=== PATIENT | female | born 1940 | race African-American/Black ===

== ENCOUNTER 2018-12-05 15:40 | Inpatient (IN) | payer MEDICARE, MEDICAID ==
[~2018-12-05] VITALS: Ht 170.2 cm; Wt 48.6 kg
[~2018-12-05 15:40] MED LIST: AZOPT EACHEYE; BIMA2.5D4 EACHEYE; BRIM5DRO6 OP; CITA10TA9 PO; ENAL20TA PO; GLIP5TAB12 PO; ISOS30TA6 PO; LISI10TA5 PO; METO25TA6 PO; PREG50CA PO; TIMO15DR12 EACHEYE; TRAZ-212 PO
[2018-12-05 16:25] VITALS: BP 195/97
[2018-12-05 16:45] VITALS: BP 211/173
[2018-12-05] MEDS: CLONIDINE 0.1MG TABLET PO SCH (17:12)
[2018-12-05] MEDS ORDERED: DEXTROSE 50% WATER 50ML SYRINGE IV PRN (17:15)
[2018-12-05 17:25] VITALS: BP 194/100
[2018-12-05] MEDS ORDERED: MAGNESIUM/ALUMINUM HYDROXIDE/SIMETHICONE 30ML UDC PO PRN (17:45)
[2018-12-05] MEDS ORDERED: LOPHC2 PO (17:45)
[2018-12-05] MEDS ORDERED: CEFTRIAXONE 1 G PREMIX 50 ML IV SCH (17:45)
[2018-12-05] MEDS ORDERED: CLONIDINE 0.1MG TABLET PO PRN (17:45)
[2018-12-05] MEDS ORDERED: LISI10TA5 PO (17:50)
[2018-12-05] MEDS ORDERED: OMEP20TA2 PO (17:50)
[2018-12-05] MEDS ORDERED: TRAZ-212 PO (17:50)
[2018-12-05] MEDS ORDERED: PREG50CA PO (17:50)
[2018-12-05] MEDS ORDERED: ISOS10TA2 PO (17:50)
[2018-12-05] MEDS: BLOOD SUGAR DIAGNOSTIC STRIP TEST SCH ×2 (18:08→21:01)
[2018-12-05] MEDS: METOPROLOL TARTRATE 25MG TABLET PO SCH (18:48)
[2018-12-05] MEDS: SODIUM CHLORIDE 0.9% 1,000 ML IV SCH (18:48)
[2018-12-05] MEDS ORDERED: INFLUENZA VIRUS VACCINE(AFLURIA) 0.5ML SYR IM ONE (19:00)
[2018-12-05 20:00] VITALS: BP 168/77
[2018-12-05 21:30] LABS: HEMATOCRIT 39.9 % (36.0-48.0); HEMOGLOBIN 13.2 g/dL (12.0-16.0); MEAN CORPUSCULAR HEMOGLOBIN 27.8 pg (28.0-32.0); MEAN CORPUSCULAR VOLUME 83.7 fL (81.0-99.0); PLATELET 167 x1000/uL (130-400); RED BLOOD CELL COUNT 4.77 mill/uL (4.2-5.4); RED CELL DISTRIBUTION WIDTH 13.6 % (11.6-14.6)
[2018-12-05 21:48] LABS: CHLORIDE 104 mEq/L (98-107)
[2018-12-06] VITALS (7 sets, daily range): BP systolic 95–197; BP diastolic 44–98
[2018-12-06] MEDS: CEFTRIAXONE 1 G PREMIX 50 ML IV SCH ×2 (00:47→18:07)
[2018-12-06] MEDS: POTASSIUM CHLORIDE 20MEQ TABLET SR PO SCH ×2 (00:48→20:24)
[2018-12-06] MEDS ORDERED: VANCOMYCIN 750 MG PREMIX 150 ML IV NR (01:00)
[2018-12-06] MEDS: BLOOD SUGAR DIAGNOSTIC STRIP TEST SCH ×4 (06:48→20:24)
[2018-12-06 07:34] LABS: BASOPHILS % 0.9 % (0.0-2.0); EOSINOPHILS % 0.4 % (0.0-5.0); HEMATOCRIT. 45.1 % (36.0-48.0); HEMOGLOBIN. 15.4 g/dL (12.0-16.0); LYMPHOCYTES % 38.2 % (20.0-50.0); MEAN CORPUSCULAR HEMOGLOBIN 27.8 pg (28.0-32.0); MEAN CORPUSCULAR VOLUME 81.7 fL (81.0-99.0); MEAN PLATELET VOLUME 7.3 fl (7.4-10.4); MONOCYTES % 7.2 % (2.0-8.0); NEUTROPHILS % 53.3 % (40.0-76.0); PLATELET 193 x1000/uL (130-400); RED BLOOD CELL COUNT 5.53 mill/uL (4.2-5.4); RED CELL DISTRIBUTION WIDTH 13.7 % (11.6-14.6)
[2018-12-06] MEDS: CLONIDINE 0.1MG TABLET PO SCH ×4 (09:00→17:00)
[2018-12-06 09:08] LABS: CLARITY URINE CLEAR (CLEAR); COLOR URINE YELLOW (YELLOW); KETONES URINE NEGATIVE (NEGATIVE); LEUKOCYTE ESTERASE URINE NEGATIVE (NEGATIVE); NITRITE URINE NEGATIVE (NEGATIVE); OCCULT BLOOD URINE NEGATIVE (NEGATIVE); PH URINE 7.5 (4.5-8.0); PROTEIN URINE NEGATIVE (NEGATIVE); SPECIFIC GRAVITY URINE 1.007 (1.005-1.030); UROBILINOGEN URINE 0.2 E.U./dL (0.2-1.0)
[2018-12-06] MEDS ORDERED: IOHEXOL-300 100 ML BOTTLE ONE (09:37)
[2018-12-06] MEDS: ENOXAPARIN 40MG/0.4ML SYR SUBCUT SCH (10:04)
[2018-12-06] MEDS: METOPROLOL TARTRATE 25MG TABLET PO SCH (10:04)
[2018-12-06] MEDS ORDERED: VANCOMYCIN 750 MG PREMIX 150 ML IV SCH (14:00)
[2018-12-06] MEDS: SODIUM CHLORIDE 0.9% 1,000 ML IV SCH (16:32)
[2018-12-06] MEDS: INSULIN LISPRO 100 UNITS/ML SUBCUT SCH ×2 (21:00→21:42)
[2018-12-07] VITALS: BP 134/60
[2018-12-07] MEDS: SODIUM CHLORIDE 0.9% 1,000 ML IV SCH ×3 (01:19→21:00)
[2018-12-07 04:00] VITALS: BP 150/78
[2018-12-07] MEDS: INSULIN LISPRO 100 UNITS/ML SUBCUT SCH ×4 (05:47→20:41)
[2018-12-07] MEDS: BLOOD SUGAR DIAGNOSTIC STRIP TEST SCH ×4 (05:47→20:41)
[2018-12-07 08:00] VITALS: BP 143/62
[2018-12-07] MEDS: METOPROLOL TARTRATE 25MG TABLET PO SCH ×2 (08:57→16:53)
[2018-12-07] MEDS: ENOXAPARIN 40MG/0.4ML SYR SUBCUT SCH (08:58)
[2018-12-07] MEDS ORDERED: MEDICATION NOT ON FORMULARY EA (Timolol Maleate 1 DROP) EACHEYE SCH (09:00)
[2018-12-07] MEDS ORDERED: BRIMONIDINE TARTRATE OP SCH (09:00)
[2018-12-07] MEDS ORDERED: MEDICATION NOT ON FORMULARY EA (Brinzolamide (Azopt) 1 DROP) EACHEYE SCH (09:00)
[2018-12-07 13:15] VITALS: BP 134/59
[2018-12-07] MEDS ORDERED: VANCOMYCIN 750 MG PREMIX 150 ML IV SCH (14:00)
[2018-12-07 16:00] VITALS: BP 169/73
[2018-12-07] MEDS: BRIMONIDINE 0.2% EACHEYE SCH (17:00)
[2018-12-07] MEDS ORDERED: MEDICATION NOT ON FORMULARY EA (Bimatoprost (Lumigan) 1 DROP) EACHEYE SCH (17:00)
[2018-12-07] MEDS: COSOPT EACHEYE SCH (17:00)
[2018-12-07] MEDS: BRINZOLAMIDE 1% EACHEYE SCH (17:00)
[2018-12-07 20:00] VITALS: BP 146/83
[2018-12-07] MEDS: CEFTRIAXONE 1 G PREMIX 50 ML IV SCH (20:41)
[2018-12-07] MEDS: LUMIGAN 0.01% EACHEYE SCH (20:41)
[2018-12-07] MEDS: POTASSIUM CHLORIDE 20MEQ TABLET SR PO SCH (20:41)
[2018-12-08] VITALS (7 sets, daily range): BP systolic 105–201; BP diastolic 52–95
[2018-12-08] MEDS: SODIUM CHLORIDE 0.9% 1,000 ML IV SCH (05:23)
[2018-12-08] MEDS: INSULIN LISPRO 100 UNITS/ML SUBCUT SCH ×4 (05:23→21:00)
[2018-12-08] MEDS: BLOOD SUGAR DIAGNOSTIC STRIP TEST SCH ×4 (05:23→21:04)
[2018-12-08] MEDS: METOPROLOL TARTRATE 25MG TABLET PO SCH (08:30)
[2018-12-08] MEDS: ENOXAPARIN 40MG/0.4ML SYR SUBCUT SCH (08:31)
[2018-12-08] MEDS: BRIMONIDINE 0.2% EACHEYE SCH ×3 (08:32→17:05)
[2018-12-08] MEDS: BRINZOLAMIDE 1% EACHEYE SCH ×2 (08:33→17:05)
[2018-12-08] MEDS: COSOPT EACHEYE SCH ×2 (08:34→17:04)
[2018-12-08] MEDS: VANCOMYCIN 750 MG PREMIX 150 ML IV SCH ×2 (09:15→21:04)
[2018-12-08] MEDS: CEFTRIAXONE 1 G PREMIX 50 ML IV SCH (18:26)
[2018-12-08] MEDS: LUMIGAN 0.01% EACHEYE SCH (21:05)
[2018-12-09] VITALS: BP 142/62
[2018-12-09] MEDS: BLOOD SUGAR DIAGNOSTIC STRIP TEST SCH ×4 (06:23→21:52)
[2018-12-09] MEDS: INSULIN LISPRO 100 UNITS/ML SUBCUT SCH ×4 (06:23→21:56)
[2018-12-09 08:00] VITALS: BP 154/60
[2018-12-09] MEDS: ENOXAPARIN 40MG/0.4ML SYR SUBCUT SCH (09:00)
[2018-12-09] MEDS: COSOPT EACHEYE SCH ×2 (09:12→18:06)
[2018-12-09] MEDS: BRIMONIDINE 0.2% EACHEYE SCH ×3 (09:12→18:06)
[2018-12-09] MEDS: BRINZOLAMIDE 1% EACHEYE SCH ×2 (09:13→18:06)
[2018-12-09] MEDS: VANCOMYCIN 750 MG PREMIX 150 ML IV SCH ×2 (09:13→21:43)
[2018-12-09 12:00] VITALS: BP 166/70
[2018-12-09 12:02] LABS: BASOPHILS % 0.5 % (0.0-2.0); EOSINOPHILS % 1.2 % (0.0-5.0); HEMATOCRIT. 38.9 % (36.0-48.0); MEAN CORPUSCULAR HEMOGLOBIN 27.6 pg (28.0-32.0); MEAN CORPUSCULAR VOLUME 82.7 fL (81.0-99.0); MEAN PLATELET VOLUME 7.7 fl (7.4-10.4); MONOCYTES % 9.9 % (2.0-8.0); NEUTROPHILS % 73.4 % (40.0-76.0); PLATELET 155 x1000/uL (130-400); RED BLOOD CELL COUNT 4.71 mill/uL (4.2-5.4); RED CELL DISTRIBUTION WIDTH 13.4 % (11.6-14.6)
[2018-12-09 12:26] LABS: PHOSPHORUS 3.1 mg/dL (2.5-4.9)
[2018-12-09 16:00] VITALS: BP 160/76
[2018-12-09] MEDS ORDERED: ONDANSETRON HCL 4MG/2ML INJ IV PRN (18:00)
[2018-12-09] MEDS: CEFTRIAXONE 1 G PREMIX 50 ML IV SCH (18:05)
[2018-12-09 20:00] VITALS: BP 138/28
[2018-12-09] MEDS: AMLODIPINE 5MG TABLET PO SCH (21:42)
[2018-12-09] MEDS: LUMIGAN 0.01% EACHEYE SCH (21:44)
[2018-12-10] VITALS (7 sets, daily range): BP systolic 125–178; BP diastolic 59–94
[2018-12-10] MEDS: BLOOD SUGAR DIAGNOSTIC STRIP TEST SCH ×4 (06:16→21:51)
[2018-12-10] MEDS: INSULIN LISPRO 100 UNITS/ML SUBCUT SCH ×4 (06:16→21:48)
[2018-12-10] MEDS: AMLODIPINE 5MG TABLET PO SCH ×2 (09:40→21:34)
[2018-12-10] MEDS: BRIMONIDINE 0.2% EACHEYE SCH ×3 (09:40→17:18)
[2018-12-10] MEDS: COSOPT EACHEYE SCH ×2 (09:40→17:18)
[2018-12-10] MEDS: ENOXAPARIN 30MG/0.3ML SYR SUBCUT SCH (09:40)
[2018-12-10] MEDS: BRINZOLAMIDE 1% EACHEYE SCH ×2 (09:41→17:18)
[2018-12-10] MEDS: HYDROCODONE/ACETAMINOPHEN 5/325MG TABLET PO PRN ×2 (14:48→15:09)
[2018-12-10] MEDS: CEFTRIAXONE 1 G PREMIX 50 ML IV SCH (21:34)
[2018-12-10] MEDS: LUMIGAN 0.01% EACHEYE SCH (21:34)
[2018-12-11] VITALS (7 sets, daily range): BP systolic 131–174; BP diastolic 66–88
[2018-12-11] MEDS: INSULIN LISPRO 100 UNITS/ML SUBCUT SCH ×2 (06:47→13:02)
[2018-12-11] MEDS: BLOOD SUGAR DIAGNOSTIC STRIP TEST SCH ×2 (06:47→12:09)
[2018-12-11] MEDS: AMLODIPINE 5MG TABLET PO SCH (08:44)
[2018-12-11] MEDS: BRINZOLAMIDE 1% EACHEYE SCH (08:45)
[2018-12-11] MEDS: ENOXAPARIN 30MG/0.3ML SYR SUBCUT SCH (08:45)
[2018-12-11] MEDS: BRIMONIDINE 0.2% EACHEYE SCH ×2 (08:46→12:59)
[2018-12-11] MEDS: COSOPT EACHEYE SCH (08:46)
[2018-12-11 13:35] LABS: BASOPHILS % 0.8 % (0.0-2.0); EOSINOPHILS % 1.9 % (0.0-5.0); MEAN CORPUSCULAR HEMOGLOBIN 27.4 pg (28.0-32.0); MEAN CORPUSCULAR VOLUME 80.5 fL (81.0-99.0); MEAN PLATELET VOLUME 7.6 fl (7.4-10.4); MONOCYTES % 10.4 % (2.0-8.0); NEUTROPHILS % 78.9 % (40.0-76.0); PLATELET 149 x1000/uL (130-400); RED CELL DISTRIBUTION WIDTH 13.6 % (11.6-14.6)
== END 2018-12-11 16:50 | DRG 602 ==
LOC: 6EST 15:40 → 5WST 12-06 22:40
PROVIDERS: ADMIT Internal Medicine Nephrology; ATTEND Internal Medicine Nephrology
PROC: 0Y903ZZ Drainage of Right Buttock, Percutaneous Approach (ICD-10-PCS; principal; 2018-12-09)
DX: L02.31 Cutaneous abscess of buttock (principal); E43 Unspecified severe protein-calorie malnutrition; Z68.1 Body mass index [BMI] 19.9 or less, adult; L02.419 Cutaneous abscess of limb, unspecified; R62.7 Adult failure to thrive; E87.6 Hypokalemia; I16.0 Hypertensive urgency; I10 Essential (primary) hypertension; H54.8 Legal blindness, as defined in USA; D64.9 Anemia, unspecified; E11.9 Type 2 diabetes mellitus without complications; Z99.3 Dependence on wheelchair
CPT/HCPCS: 36415; 74178; 80048; 80202; 82962; 83036; 83735; 84100; 85027; 97162; 97530; J0696; J1650; J1815; J2405; J3370; J7030; Q9967